=== PATIENT | male | born 1960 | race Caucasian/White ===

== ENCOUNTER → 2018-06-14 | Outpatient (CLI) | payer BC ==
[~2018-06-14] MED LIST: BENZ200C25 PO; CHOL378P PO; DIOVAN; DOXY100C2 PO; HYDR-3816 PO; HYDR1TAB8 OP; LEVO100T46 PO; LEVO125T PO; LIOT50TA2 PO; LIOTHYSO5 PO; LVT.112T PO; Levothyroxine Sodium PO; MTF500T PO; TRAM-21 PO; VALS1TAB15 PO; [UNRECOGNIZED DRUG - OTHER]
--- NOTE | 2018-06-14 12:58 | Diagnostic Imaging Report ---
PROCEDURE: CT chest without contrast. TECHNIQUE: Multiple contiguous axial images were obtained through the chest without the use of intravenous contrast. INDICATION: Pulmonary nodule. COMPARISON: Comparison is made with prior CT chest from 01/23/2009. FINDINGS: No axillary lymphadenopathy is identified. No definite hilar or mediastinal lymphadenopathy is identified. There are coronary arterial calcifications present. No pericardial or pleural fluid is detected. Nodule in the medial aspect of the right upper lobe measures slightly larger on today's study at 9 to 10 mm compared with 8 mm. 2 mm guide changer approximately nine years period is reassuring for benignity. No other nodules are seen. There are no infiltrates. The upper abdomen is unremarkable. IMPRESSION: There has been very minimal increase in size of the nodule in the right upper lobe when compared with study of almost 10 years earlier. Very little growth over 9 to 10 years is reassuring for benignity. No new abnormality is detected. Dictated by: Dictated on workstation # [id number]
== END ==
LOC: RAD 12:09
PROVIDERS: ATTEND Nurse Practitioner Family
DX: R91.1 Solitary pulmonary nodule (principal)
CPT/HCPCS: 71250

== ENCOUNTER → 2020-04-09 | Outpatient (CLI) | payer BC ==
[~2020-04-09] VITALS: Ht 167 cm; Wt 136.3 kg
[~2020-04-09] MED LIST changes: +BAMLANIVIMAB 700 MG in NS 200 ML IV ONE; +EPINEPHrine INJECTION 1 MG/ML AMP IM PRN; +diphenhydrAMINE 50 MG/ML INJ (BENADRYL) IV PRN
[2020-04-09 13:34] VITALS: BP 189/101
[2020-04-09 14:39] VITALS: BP 159/84
[2020-04-09 15:40] VITALS: BP 161/86
== END ==
LOC: INFUSION 13:25
PROVIDERS: ATTEND Nurse Practitioner Family
DX: U07.1 COVID-19 (principal); E11.9 Type 2 diabetes mellitus without complications

== ENCOUNTER 2021-09-19 14:04 | Emergency (ER) | payer BC ==
[~2021-09-19] VITALS: Ht 172.7 cm; Wt 136.3 kg
[~2021-09-19 14:04] MED LIST changes: -BAMLANIVIMAB 700 MG in NS 200 ML IV ONE; -EPINEPHrine INJECTION 1 MG/ML AMP IM PRN; -diphenhydrAMINE 50 MG/ML INJ (BENADRYL) IV PRN
[2021-09-19 14:40] LABS: BASOPHILS % (AUTO) 0 % (0-10); EOSINOPHILS % (AUTO) 0 % (0-10); HEMATOCRIT 45 % (40-54); HEMOGLOBIN 15.5 g/dL (13.3-17.7); LYMPHOCYTES # (AUTO) 2.4 10^3/uL (1.0-4.0); LYMPHOCYTES % (AUTO) 26 % (12-44); MEAN CORPUSCULAR HEMOGLOBIN 31 pg (25-34); MEAN CORPUSCULAR HGB CONC 35 g/dL (32-36); MEAN CORPUSCULAR VOLUME 89 fL (80-99); MEAN PLATELET VOLUME 9.8 fL (9.0-12.2); MONOCYTES # (AUTO) 0.9 10^3/uL (0.0-1.0); MONOCYTES % (AUTO) 10 % (0-12); NEUTROPHILS % (AUTO) 63 % (42-75); PLATELET COUNT 198 10^3/uL (130-400); WHITE BLOOD COUNT 9.5 10^3/uL (4.3-11.0)
[2021-09-19 14:55] LABS: ALBUMIN 4.1 GM/DL (3.2-4.5)
[2021-09-19 14:56] LABS: POTASSIUM 3.6 MMOL/L (3.6-5.0)
[2021-09-19 14:57] LABS: CALCIUM 9.2 MG/DL (8.5-10.1)
[2021-09-19 14:58] LABS: TOTAL PROTEIN 7.5 GM/DL (6.4-8.2)
[2021-09-19 15:00] LABS: BILIRUBIN,TOTAL 0.7 MG/DL (0.1-1.0)
[2021-09-19] MEDS ORDERED: ONDANSETRON 4 MG/2 ML (SDV) Z0FRAN IVP ONE (15:00)
[2021-09-19 15:02] LABS: CREATININE SERUM 1.38 MG/DL (0.60-1.30)
[2021-09-19 15:04] LABS: MAGNESIUM 1.9 MG/DL (1.6-2.4)
--- NOTE | 2021-09-19 15:04 | ED General ---
General Chief Complaint: Abdominal/GI Problems Stated Complaint: DIARRHEA - VOMITING - SOA Nursing Triage Note: c/o flu like symptoms since thursday, n/v/d stomach cramping. (JASIEL UMANA) History of Present Illness Date Seen by Provider: September 19, 2021 Time Seen by Provider: 14:35 Initial Comments 61 year old male with history of colon cancer requiring resection and chemotherapy presents to the ER today with nausea, vomiting and diarrhea that began Thursday. He reports the systems came on rather fast Thursday and have been rather constant since they began. He has also had abdominal distension and diffuse, crampy abdominal discomfort that has come on in the past couple days. He called Dr. Tobias's office Thursday who wrote a prescription for zofran, but he reports it failed to help. Since his symptoms began he has primarily been eating soup but reports not being successful at keeping anything down. He denies non-digested food in his vomit and describes at as more mucousy/frothy in nature. He describes the diarrhea as straight liquid. His last colonoscopy was [address] Youngblood. He denies fevers, chills, sore throat, shortness of breath, cough, chest pain, or heart palpitations. He has no known sick exposures. He reports having his flu and covid vacccines. Timing/Duration: 1 Week (JASIEL UMANA) Allergies and Home Medications Allergies Coded Allergies: Penicillins (Verified Allergy, Unknown, 05/30/14) meperidine (Verified Allergy, Unknown, 06/17/05) triamcinolone (Verified Allergy, Unknown, 06/17/05) Patient Home Medication List Home Medication List Reviewed: Yes (JOSEFINA CHOW MD) Hydrocodone Bit/Acetaminophen (Hydrocodone-Apap 7.5-325 Tb) 1 Tab Tablet, 1-2 TAB PO Q4-6HRS Prescribed by: REEMA VELASCO on 05/31/14 1129 Hyoscyamine Sulfate (Levsin-Sl) 0.125 Mg Tab.subl, 0.125 MG SL Q4H PRN for CRAMPS Prescribed by: JOSEFINA AHUJA on 09/19/21 1840 Tramadol Hcl (Ultram) 50 Mg Tablet, 50 MG PO Q4H Prescribed by: MARY FIELDS on 05/24/142127 [Levothyroxine Sodium] , 2.125 MG PO DAILY, (Reported) Entered as Reported by: BECKIE SIBLEY on 05/30/14 1310 Review of Systems Review of Systems Constitutional: No chills, No fever, No malaise EENTM: No hearing loss, No vision loss, No throat pain Respiratory: No cough, No short of breath Cardiovascular: No chest pain, No palpitations Gastrointestinal: abdominal pain (diffuse abdominal pain. crampy in nature.), diarrhea, nausea, vomiting Genitourinary: No dysuria; frequency (normal); No hematuria Musculoskeletal: No muscle pain, No muscle weakness Skin: No change in color, No lesions, No rash Psychiatric/Neurological: Numbness (mild numbness in feet. reports chronic in nature.); Denies Weakness Hematologic/Lymphatic: No Symptoms Reported Immunological/Allergic: no symptoms reported (JASIEL UMANA) Past Jfoaifk-Hjpmax-Qjbqrf Hx Patient Social History Tobacco Use?: No Use of E-Cig and/or Vaping dev: No Substance use?: No Alcohol Use?: No Pt feels they are or have been: No (JASIEL UMANA) Immunizations Up To Date PED Vaccines UTD: No Influenza Vaccine Up-to-Date: Yes; Up-to-Date (JASIEL UMANA) Past Medical History Surgeries: Yes (partial colon resection) Gallbladder, Thyroidectomy Respiratory: Yes Sleep Apnea Neurological: No Genitourinary: No Gastrointestinal: Yes (history of colon cancer) Arthritis Hypothyroidsim Loss of Vision: Denies Cancer: Yes Colon Did You Recieve Any Treatments: Yes What Type of Treatment Did You: Chemotherapy, Surgical Intervention Psychosocial: No Integumentary: No (JASIEL UMANA) Physical Exam Vital Signs Vital Signs - First Documented 09/19/21 14:33 Temp 36.2 Pulse 93 Resp 18 B/P (MAP) 193/92 (125) Pulse Ox 98 O2 Delivery Room Air (JOSEFINA CHOW MD) Vital Signs Capillary Refill : Less Than 3 Seconds (JASIEL UMANA) Height, Weight, BMI Height: 5'8.00" Weight: 290lbs. oz. 131.039191wc; 45.00 BMI Method:Stated General Appearance: WD/WN, Obese Eyes: Bilateral Eye PERRL, Bilateral Eye EOMI HEENT: PERRL/EOMI, Other (dry oral cavity) Neck: Non Tender, Supple; No Lymphadenopathy (L), No Lymphadenopathy (R) Respiratory: Chest Non Tender, Normal Breath Sounds, No Accessory Muscle Use, No Respiratory Distress Cardiovascular: Regular Rate, Rhythm, No Murmur, Normal Peripheral Pulses Gastrointestinal: Abnormal Bowel Sounds (diminished), Distended; No Rebound; Tenderness (diffusely upon palpation, ), Other (tympanic upon percussion of RUQ and LUQ. Dull to percussion in RLQ and LLQ. ) Extremity: Normal Capillary Refill, Non Tender, No Calf Tenderness, No Pedal Edema Neurologic/Psychiatric: Alert, Oriented x3, Normal Mood/Affect Skin: Warm/Dry, Other (darkening of skin of distal shins bilaterally with mild swelling.) Lymphatic: No Adenopathy (JASIEL UMANA) Progress/Results/Core Measures Suspected Sepsis SIRS Temperature: Pulse: 93 Respiratory Rate: 18 Laboratory Tests 09/19/21 14:33: White Blood Count 9.5 Blood Pressure 193 /92 Mean: 125 Laboratory Tests 09/19/21 14:33: Creatinine 1.38H, Platelet Count 198, Total Bilirubin 0.7 (JASIEL UMANA) Results/Orders Lab Results Laboratory Tests Test 09/19/21 14:33 09/19/21 14:54 Range/Units White Blood Count 9.5 4.3-11.0 10^3/uL Red Blood Count 5.03 4.30-5.52 10^6/uL Hemoglobin 15.5 13.3-17.7 g/dL Hematocrit 45 40-54 % Mean Corpuscular Volume 89 80-99 fL Mean Corpuscular Hemoglobin 31 25-34 pg Mean Corpuscular Hemoglobin Concent 35 32-36 g/dL Red Cell Distribution Width 12.7 10.0-14.5 % Platelet Count 198 130-400 10^3/uL Mean Platelet Volume 9.8 9.0-12.2 fL Immature Granulocyte % (Auto) 1 % Neutrophils (%) (Auto) 63 42-75 % Lymphocytes (%) (Auto) 26 12-44 % Monocytes (%) (Auto) 10 0-12 % Eosinophils (%) (Auto) 0 0-10 % Basophils (%) (Auto) 0 0-10 % Neutrophils # (Auto) 6.0 1.8-7.8 10^3/uL Lymphocytes # (Auto) 2.4 1.0-4.0 10^3/uL Monocytes # (Auto) 0.9 0.0-1.0 10^3/uL Eosinophils # (Auto) 0.0 0.0-0.3 10^3/uL Basophils # (Auto) 0.0 0.0-0.1 10^3/uL Immature Granulocyte # (Auto) 0.1 0.0-0.1 10^3/uL Sodium Level 137 135-145 MMOL/L Potassium Level 3.6 3.6-5.0 MMOL/L Chloride Level 102 98-107 MMOL/L Carbon Dioxide Level 22 21-32 MMOL/L Anion Gap 13 5-14 MMOL/L Blood Urea Nitrogen 18 7-18 MG/DL Creatinine 1.38 H 0.60-1.30 MG/DL Estimat Glomerular Filtration Rate 57 BUN/Creatinine Ratio 13 Glucose Level 152 H 70-105 MG/DL Calcium Level 9.2 8.5-10.1 MG/DL Corrected Calcium 9.1 8.5-10.1 MG/DL Magnesium Level 1.9 1.6-2.4 MG/DL Total Bilirubin 0.7 0.1-1.0 MG/DL Aspartate Amino Transf (AST/SGOT) 30 5-34 U/L Alanine Aminotransferase (ALT/SGPT) 57 H 0-55 U/L Alkaline Phosphatase 67 40-136 U/L Total Protein 7.5 6.4-8.2 GM/DL Albumin 4.1 3.2-4.5 GM/DL Lipase 18 8-78 U/L Influenza Type A (RT-PCR) Not Detected Not Detecte Influenza Type B (RT-PCR) Not Detected Not Detecte SARS-CoV-2 RNA (RT-PCR) Not Detected Not Detecte Urine Color YELLOW Urine Clarity CLEAR Urine pH 6.0 5-9 Urine Specific Goodell 1.025 H 1.016-1.022 Urine Protein NEGATIVE NEGATIVE Urine Glucose (UA) NEGATIVE NEGATIVE Urine Ketones TRACE H NEGATIVE Urine Nitrite NEGATIVE NEGATIVE Urine Bilirubin NEGATIVE NEGATIVE Urine Urobilinogen 1.0 < = 1.0 MG/DL Urine Leukocyte Esterase NEGATIVE NEGATIVE Urine RBC (Auto) NEGATIVE NEGATIVE Urine RBC NONE /HPF Urine WBC 0-2 /HPF Urine Squamous Epithelial Cells 0-2 /HPF Urine Renal Epithelial Cells NONE /HPF Urine Crystals NONE /LPF Urine Bacteria TRACE /HPF Urine Casts NONE /LPF Urine Mucus SMALL H /LPF Urine Culture Indicated NO (JOSEFINA CHOW MD) My Orders Orders - JOSEFINA CHOW MD Cbc With Automated Diff (09/19/21 14:16) Comprehensive Metabolic Panel (09/19/21 14:16) Magnesium (09/19/21 14:16) Ua Culture If Indicated (09/19/21 14:16) Ed Iv/Invasive Line Start (09/19/21 14:16) Lipase (09/19/21 14:55) Ondansetron Injection (Zofran Injectio (09/19/21 15:00) Covid 19 Inhouse Test (09/19/21 14:57) Influenza A And B By Pcr (09/19/21 14:57) Ct Abdomen/Pelvis Wo (09/19/21 15:01) Diatrizoate Meglum/Sodium 37% (Gastrogra (09/19/21 15:15) Ed Iv/Invasive Line Start (09/19/21 15:23) Lactated Ringers (Lr 1000 Ml Iv Solution (09/19/21 15:30) (JOSEFINA CHOW MD) Medications Given in ED Current Medications Medications Dose Ordered Sig/Deangelo Route Start Time Stop Time Status Last Admin Dose Admin Diatrizoate Meglum/ Diatrizoate Sod 120 ml ONCE ONCE PO 09/19/21 15:15 09/19/21 15:16 DC 09/19/21 15:13 50 ML Lactated Ringer's 1,000 ml @ 0 mls/hr Q0M ONCE IV 09/19/21 15:30 09/19/21 15:31 DC 09/19/21 15:30 1,000 MLS/HR Ondansetron HCl 8 mg ONCE ONCE IVP 09/19/21 15:00 09/19/21 15:01 DC 09/19/21 15:30 8 MG (JOSEFINA CHOW MD) Vital Signs/I&O 09/19/21 09/19/21 14:33 18:49 Temp 36.2 Pulse 93 80 Resp 18 18 B/P (MAP) 193/92 (125) 147/79 Pulse Ox 98 97 O2 Delivery Room Air Room Air (JOSEFINA CHOW MD) Vital Signs/I&O Capillary Refill : Less Than 3 Seconds (JASIEL UMANA) Blood Pressure Mean: 125 Progress Note : Progress Note 1530 Patient was reassessed at this time. CBC, CMP, Mag, Lipase, and urinalysis are unremarkable for signs of infection or other acute findings that would describe his presentation. [place] patient has had a SBO in the past that resolved w/out surgery. Given history of colon cancer and resection and current presentation, CT with oral contrast has been ordered to look for signs of obstruction. Discussed this with patient who agreed to the imaging. Rates abdominal pain as 4/10 at this time and doing okay with nausea. 17:00 Patient reports nausea has improved at this time and pain is doing okay. Vital signs were stable while I was in the room. His CT showed no signs of obstruction. Paired with unremarkable lab findings, patient should be stable enough to go home today with supportive therapy. (JASIEL UMANA) Diagnostic Imaging Diagonstic Imaging: CT Plain Films/CT/US/NM/MRI: abdomen Comments Results of abdominal CT reviewed by me with preliminary draft by radiology attached below. NAME: LUX SANCHEZ [facility] REC#: [id number] PT STATUS: REG ER : 1960 PHYSICIAN: JOSEFINA CHOW MD ADMIT DATE: 09/19/21/ER Draft Date of Exam:09/19/21 CT ABDOMEN/PELVIS WO EXAMINATION: CT abdomen and pelvis without contrast. TECHNIQUE: Multiple contiguous axial images were obtained through the abdomen and pelvis without the use of intravenous contrast. All CT scans use one or more of the following dose optimizing techniques: automated exposure control, MA and/or KvP adjustment based on patient size and exam type or iterative reconstruction. HISTORY: Abdominal pain and vomiting. COMPARISON: 07/23/2011. FINDINGS: Limited views of the lower thorax are unremarkable. Liver is steatotic. No focal liver lesions are seen. There is no biliary ductal dilation. Gallbladder is surgically absent. Pancreas is normal. Spleen is normal. Adrenal glands are normal. The kidneys are normal. There is no hydronephrosis. Urinary bladder is normal. Small bowel loops are mildly dilated. Oral contrast extends to the terminal ileum. There is liquid stool in the colon suggestive of a diarrheal illness. No discrete transition is seen to indicate obstruction. No free fluid or air. No abdominal or pelvic lymphadenopathy. Aorta is normal in caliber without aneurysm. There are no suspicious osseus lesions. IMPRESSION: 1. Mildly dilated small bowel without transition and with passage of oral contrast and the terminal ileum. There is liquid stool in the colon. Findings suggestive of enterocolitis. No evidence for obstruction. 2. Steatotic liver. Dictated on workstation # [id number] Dict: 09/19/21 1641 Trans: 09/19/21 164 PJE [id number] Interpreted by: SHELLEY MONTES MD Electronically signed by: (JASIEL UMANA) Comments CT viewed by me and report reviewed. (JOSEFINA CHOW MD) Departure Impression Primary Impression: Nausea vomiting and diarrhea Additional Impressions: Generalized abdominal pain Gastroenteritis Disposition: HOME, SELF-CARE Condition: Improved Departure-Patient Inst. Decision time for Depature: 18:37 (JOSEFINA CHOW MD) Referrals: ZAKIA TOBIAS MD (PCP/Family) Primary Care Physician Patient Instructions: Severe Abdominal Pain, Adult (DC), Viral Gastroenteritis Add. Discharge Instructions: Based on your work-up in the emergency room and your CT scan, viral gastroenteritis is the likely cause of your symptoms. Adhere to a noncarbonated clear liquid diet for the remainder of tonight. If you are feeling improved in the morning, gradually advance your diet with small quantities of bland food as tolerated. Avoid fatty/greasy foods and dairy products until your symptoms have been resolved for at least 48 hours. Use the Zofran (ondansetron) as previously prescribed for nausea or vomiting. If you have upper abdominal discomfort or heartburn, you may use an antacid product such as Pepcid, omeprazole, Tums, etc. For generalized pain you may use Tylenol (acetaminophen) up to 1000 mg every 6 hours as needed. This should not cause any stomach upset. You may use Levsin (hyoscyamine) for bowel cramping. This may also slow down diarrhea. Return to care if you have worsening symptoms. Call with questions or concerns. All discharge instructions reviewed with patient and/or family. Voiced understanding. Scripts Hyoscyamine Sulfate (Levsin-Sl) 0.125 Mg Tab.subl 0.125 MG SL Q4H PRN for CRAMPS, #10 TAB 0 Refills Prov: JOSEFINA CHOW MD 09/19/21 Medical Student Attestation and Attending Note: I have personally interviewed and examined this patient along with Jasiel Umana, MS 3. I have reviewed student documentation including history, physical, and assessments. I agree with the documentation except where otherwise noted. Patient was treated with IV fluids and Zofran. Work-up was consistent with gastroenteritis. He required opioid medications. See discharge instructions for further discussion. Exam: General: Alert, oriented, no acute distress, well developed HEENT: Normocephalic and atraumatic Heart: Regular rate and rhythm without murmur Lungs: Clear to auscultation bilaterally with normal effort Abdomen: Soft, distended with tympany panic sounds to percussion, diffusely moderately tender. Neuropsych: Alert, oriented, no focal deficits Skin: Warm and dry without rashes (JOSEFINA CHOW MD) Copy Copies To 1: ZAKIA TOBIAS MD, CARSON September 19, 2021 15:04 JOSEFINA CHOW MD September 19, 2021 18:40
[2021-09-19 15:07] LABS: BILIRUBIN,URINE NEGATIVE (NEGATIVE); CLARITY,URINE CLEAR; COLOR,URINE YELLOW; GLUCOSE, URINE (UA) NEGATIVE (NEGATIVE); KETONES,URINE TRACE (NEGATIVE); LEUKOCYTE ESTERASE ,URINE NEGATIVE (NEGATIVE); NITRITE,URINE NEGATIVE (NEGATIVE); PROTEIN,URINE NEGATIVE (NEGATIVE)
[2021-09-19 15:13] LABS: BACTERIA,URINE TRACE /HPF; SQUAMOUS EPITHELIAL CELL,UR 0-2 /HPF; WBC,URINE 0-2 /HPF
[2021-09-19] MEDS ORDERED: DIATRIZOATE MEGLUM/SODIUM 37% 120 ML (GASTROGRAFIN) PO ONE (15:15)
[2021-09-19] MEDS ORDERED: LACTATED RINGERS 1,000 ML IV ONE (15:30)
--- NOTE | 2021-09-19 16:45 | Diagnostic Imaging Report ---
EXAMINATION: CT abdomen and pelvis without contrast. TECHNIQUE: Multiple contiguous axial images were obtained through the abdomen and pelvis without the use of intravenous contrast. All CT scans use one or more of the following dose optimizing techniques: automated exposure control, MA and/or KvP adjustment based on patient size and exam type or iterative reconstruction. HISTORY: Abdominal pain and vomiting. COMPARISON: 07/23/2011. FINDINGS: Limited views of the lower thorax are unremarkable. Liver is steatotic. No focal liver lesions are seen. There is no biliary ductal dilation. Gallbladder is surgically absent. Pancreas is normal. Spleen is normal. Adrenal glands are normal. The kidneys are normal. There is no hydronephrosis. Urinary bladder is normal. Small bowel loops are mildly dilated. Oral contrast extends to the terminal ileum. There is liquid stool in the colon suggestive of a diarrheal illness. No discrete transition is seen to indicate obstruction. No free fluid or air. No abdominal or pelvic lymphadenopathy. Aorta is normal in caliber without aneurysm. There are no suspicious osseus lesions. IMPRESSION: 1. Mildly dilated small bowel without transition and with passage of oral contrast and the terminal ileum. There is liquid stool in the colon. Findings suggestive of enterocolitis. No evidence for obstruction. 2. Steatotic liver. Dictated by: Dictated on workstation # [id number]
[2021-09-19] MEDS ORDERED: HYOS0.1283 SL (18:40)
[2021-09-19 18:49] VITALS: BP 147/79
== END 2021-09-19 18:48 | disposition home or self-care (01) ==
LOC: EDUNIT# 14:04 → ER 14:05
DX: K52.9 Noninfective gastroenteritis and colitis, unspecified (principal); Z85.038 Personal history of other malignant neoplasm of large intestine; Z20.822 Contact with and (suspected) exposure to COVID-19
CPT/HCPCS: 36415; 74176; 80053; 81000; 83690; 83735; 85025; 87636

== ENCOUNTER → 2022-01-15 | Outpatient (CLI) | payer BC ==
[~2022-01-15] VITALS: Ht 170.2 cm; Wt 132.5 kg
[~2022-01-15] MED LIST changes: +HYOS0.1283 SL; +LEVO175T5 PO; +LISI10TA25 PO; +METF-397 PO
== END ==
LOC: PREOP 05:36
PROVIDERS: ATTEND Surgery
DX: Z01.818 Encounter for other preprocedural examination (principal)

== ENCOUNTER 2022-01-27 07:50 | Day surgery (SDC) | payer BC ==
[~2022-01-27] VITALS: Ht 170.2 cm; Wt 132.5 kg
[2022-01-27] MEDS ORDERED: LACTATED RINGERS 1,000 ML IV STA (08:00)
[2022-01-27 08:12] VITALS: BP 185/93
--- NOTE | 2022-01-27 08:22 | Progress Note-Pre Operative ---
Pre-Operative Progress Note Date of Available H&P: Dec 31, 2021 Date H&P Reviewed: Jan 27, 2022 Time H&P Reviewed: 08:18 History & Physical: H&P Reviewed, Patient Examed, No changes noted Pre-Operative Diagnosis: screening LALO GOMEZ DO Jan 27, 2022 08:22
[2022-01-27] MEDS ORDERED: PROPOFOL INJECTION 50 ML IV ONE (09:31)
[2022-01-27 09:55] VITALS: BP 128/61
--- NOTE | 2022-01-27 09:55 | Anesthesia-General Post-Op ---
MAC Patient Condition Mental Status/LOC: Same as Preop Cardiovascular: Satisfactory Nausea/Vomiting: Absent Respiratory: Satisfactory Pain: Controlled Complications: Absent Post Op Complications Complications None Follow Up Care/Instructions Patient Instructions None needed. Anesthesiology Discharge Order Discharge Order Patient is doing well, no complaints, stable vital signs, no apparent adverse anesthesia problems. No complications reported per nursing. SHEA MULTANI CRNA Jan 27, 2022 09:55
--- NOTE | 2022-01-27 09:57 | Progress Note-Post Operative ---
Post-Operative Progess Note Surgeon (s)/Wheel Assembler (s) Surgeon LALO GOMEZ DO Wheel Assembler: KIERA Villaseñor Pre-Operative Diagnosis screening Post-Operative Diagnosis int hemorrhoids Procedure & Operative Findings Date of Procedure 01/27/22 Procedure Performed/Findings Colonoscopy PROCEDURE NOTE: After informed consent was obtained, the patient was brought to the endoscopy suite, placed in bed in left lateral decubitus position. He was administered IV sedation by the CONCRETE RUBBER who then monitored his vitals the entire time, heart rate, blood pressure and pulse ox and the scope was inserted, pushed all the way to about 130 cm and pushed into the cecum, took a picture of appendiceal orifice and then able to get into the terminal ileum. Slowly withdrew the scope insufflating to look circumferentially at the christopher starting in the cecum, up the ascending colon to the hepatic flexure, then down the transverse colon, splenic flexure, and into the whatever remained of the descending colon down. I found the anastomosis of previous colon resection just above the rectum. Finally, into the rectal vault and retroflexed the scope. Took a picture of the internal hemorrhoids. The patient tolerated the procedure. He was recovered in endoscopy suite. Recommended for repeat colonoscopy in 10 years. Anesthesia Type IV sedation by CONCRETE RUBBER Estimated Blood Loss Estimated blood loss (mL): none Specimens/Packing Specimens Removed none LALO GOMEZ DO Jan 27, 2022 09:57
--- NOTE | 2022-01-27 09:58 | Endoscopy Discharge Instruct ---
Endo Procedure/Findings Findings 1.: Internal Hemorrhoids Discharge Instructions - Activity: You might feel a little sleepy until tomorrow. This is due to the me dicine you received to relax you. Until tomorrow, you should: NOT drive a car, operate machinery or power tools. NOT drink any alcoholic beverages. NOT make any important decisions or sign importortant papers. Do not return to work until tomorrow, unless otherwise instructed. Resume previous activities tomorrow. Diet: Start by taking liquids. If you tolerate liquids, advance to solid food. 1.: Colonscopy in 10 years Notify Physician - If you experience excessive bleeding, unusual abdominal pain, fever, or chest pain, contact your doctor immediately. LALO GOMEZ DO Jan 27, 2022 09:58
[2022-01-27 10:00] VITALS: BP 128/61
[2022-01-27 10:21] VITALS: BP 128/61
== END 2022-01-27 10:25 | disposition home or self-care (01) ==
LOC: ENDO 07:50
PROVIDERS: ATTEND Surgery
DX: Z12.11 Encounter for screening for malignant neoplasm of colon (principal); K64.8 Other hemorrhoids; E66.01 Morbid (severe) obesity due to excess calories; Z68.42 Body mass index [BMI] 45.0-49.9, adult